=== PATIENT | female | born 1945 | race Caucasian/White ===

== ENCOUNTER 2019-03-12 09:47 | Outpatient (CLI) | payer MEDICARE ==
--- NOTE | 2019-03-12 11:51 | BD ---
DEXA SCAN: INDICATIONS: Postmenopausal osteoporosis screening. FINDINGS: LUMBAR SPINE BMD (g/cm2) T-SCORE Z-SCORE L1 1.629 5.8 8.0 L2 1.479 4.1 6.5 L3 1.387 2.8 5.3 L4 1.218 1.4 4.0 L1-L4 1.405 3.3 5.7 LEFT FEMORAL NECK REGION 0.708 -1.3 0.8 LEFT TOTAL HIP 1.191 2.0 3.9 IMPRESSION: Based on WHO criteria, the patient's bone mineral density is osteopenic. The patient is at moderate risk for fracture. The FRAX-WHO fracture risk assessment tool estimates the 10-year fracture risk fo r a major osteoporotic fracture for this patient at 10% and for a hip fracture at 1.8%. POS: [facility]
== END 2019-03-12 09:48 | disposition home or self-care (01) ==
LOC: BICMAMMO 09:47
PROVIDERS: ATTEND Nurse Practitioner Family
DX: Z13.820 Encounter for screening for osteoporosis (principal); M85.852 Other specified disorders of bone density and structure, left thigh
CPT/HCPCS: 77080

== ENCOUNTER 2019-10-08 12:57 | Outpatient (CLI) | payer MEDICARE ==
--- NOTE | 2019-10-08 14:38 | CT ---
CT LEFT SHOULDER WITHOUT CONTRAST: HISTORY: Left shoulder pain and limited range of motion. COMPARISON: 11/30/2015 FINDINGS: The previous examination was before the joint replacement. Scan artifact related to the replacement d oes definitely degrade detail. There is mild arthrosis of the AC joint with a prominent subacromial s pur present. The humeral component of the prosthesis does not show any definite signs of loosening. There is corti bong thinning involving the cortex of the humeral laterally but no fracture is visualized. The glenoid component of the prosthesis shows some lucency surrounding the screws and there is disrup tion of the posterior cortex of the glenoid, specifically the posterior-inferior portion of the gleno id. The visualized lung field is clear. IMPRESSION: Lucency surrounding the screws involving the glenoid component of the prosthesis with disruption of t he posterior cortex of the glenoid in its posterior-inferior half. POS: [facility]
== END 2019-10-08 12:58 | disposition home or self-care (01) ==
LOC: BICCT 12:57
PROVIDERS: ATTEND Orthopaedic Surgery
DX: M12.812 Other specific arthropathies, not elsewhere classified, left shoulder (principal)

== ENCOUNTER 2020-02-25 10:05 | Outpatient (CLI) | payer MEDICARE ==
--- NOTE | 2020-02-25 11:37 | RAD ---
Exam: Lumbar spine 3 views HISTORY: Lumbar degenerative disc disease. FINDINGS: Lateral neutral, lateral flexion and lateral extension views are presumed with the patient upright Spondylolisthesis: L4-L5: 4 mm of anterolisthesis in the neutral position, 5.6 mm of anterolisthesis upon flexion, 4.5 m m of anterolisthesis upon extension L5-S1: 6.6 mm of anterolisthesis in the neutral position, 9.3 mm of anterolisthesis upon flexion, 7.6 mm of anterolisthesis upon extension. There is evidence of facet arthropathy and multiple levels IMPRESSION: Spondylolisthesis as above.
--- NOTE | 2020-02-25 11:43 | MRI ---
MRI LUMBAR SPINE NONCONTRAST: HISTORY: Lumbar degeneration disc disease. COMPARISON: 12/26/2016. FINDINGS: Redemonstration of type I and type II Modic changes at the T12-L1 level. There is interval developmen t of type I and II Modic changes at L1 and L2. Interval development of prominent anterior osteophytes at L1-L2 and progression of osteophytes at T12-L1. Stable curvature of the lumbar spine w ith rightward scoliosis, apex at the L2 level. Appropriate signal intensity of the visualized paraspinal muscles and solid organs. Conus medullaris terminates at the mid L1 level. T12-L1:Disc desiccation with severe loss of disc space height. Broad-based disc bulge with resultant mild central canal stenosis. Mild bilateral neural foraminal narrowing. L1-L2:Disc desiccation with moderate loss of disc space height. Broad-based disc bulge results in at least mild central canal stenosis. A small amount of fluid in both facet joints. Right neural foramen is patent. Severe left neural foraminal narrowing. L2-L3: Disc desiccation with severe loss of disc space height. Broad-based disc bulge with a right sheriff barticular disc herniation. There appears be an associated annular fissure. Annular fissure and disc material abuts the traversing left L3 nerve root. Mild to moderate right and moderate left neura l foraminal narrowing. L3-L4: Disc desiccation with moderate loss of disc space height. Broad-based disc bulge with a centra l and right subarticular inferior disc extrusion. At the disc space, there is mild to moderate central canal stenosis. There is ligamentum flavum thickening and facet hypertrophy. Fluid in both fa cet joints. Inferior to the disc space, there is narrowing of the right subarticular zone with mass effect and partial obscuration the traversing right L4 nerve root. Mild right and mild to moderate le ft neural foraminal narrowing. L4-L5: Adequate disc hydration. No significant loss of disc space height. Broad-based disc bulge, lig ament flavum thickening and facet result in mild central canal stenosis. There is fluid in both facet joints. Mild to moderate right neural foraminal narrowing. Left neural foramen is patent. L5-S1: Disc desiccation with mild loss of disc space height. Broad-based disc bulge abuts the thecal sac and minimally encroaches upon bilateral subarticular zones. There is some mass effect upon bilateral traversing S1 nerve roots without significant obscuration. There is bilateral facet hypertr ophy with fluid in both facet joints. No significant stenosis of the thecal sac. Mild to moderate bilateral neural foraminal narrowing. Spondylolisthesis: 1.9 mm of retrolisthesis of T12 upon L1. 2.4 mm of retrolisthesis of L1 upon L2. 2.6 mm of retrolisthesis of L2 upon L3. 3.1 mm of retrolisthesis of L3 upon L4. 2.4 mm of anterolisthesis of L4 upon L5. 7.1 mm of anterolisthesis of L5 upon S1. IMPRESSION: Multilevel degenerative changes of the lumbar spine as detailed above. Transcribed Date/Time: 02/25/2020 1:13 PM
== END 2020-02-25 10:06 | disposition home or self-care (01) ==
LOC: BICMRI 10:05
PROVIDERS: ATTEND Nurse Practitioner Family
DX: M51.36 Other intervertebral disc degeneration, lumbar region (principal); M48.061 Spinal stenosis, lumbar region without neurogenic claudication; M43.16 Spondylolisthesis, lumbar region; M47.816 Spondylosis without myelopathy or radiculopathy, lumbar region
CPT/HCPCS: 72100; 72148

== ENCOUNTER 2022-07-11 12:53 | Outpatient (CLI) | payer MEDICARE | END 2022-07-11 12:54 | disposition home or self-care (01) | LOC: MRI 12:53 | PROVIDERS: ATTEND Specialist | DX: M47.22 Other spondylosis with radiculopathy, cervical region (principal); M50.11 Cervical disc disorder with radiculopathy, high cervical region; M48.02 Spinal stenosis, cervical region; M25.78 Osteophyte, vertebrae | CPT/HCPCS: 72141 ==

== ENCOUNTER 2022-12-15 14:48 | Outpatient (CLI) | payer MEDICARE | END 2022-12-15 14:49 | disposition home or self-care (01) | LOC: TBSIIMAG 14:48 | PROVIDERS: ATTEND Nurse Practitioner Family | DX: M48.061 Spinal stenosis, lumbar region without neurogenic claudication (principal); M47.816 Spondylosis without myelopathy or radiculopathy, lumbar region; M43.16 Spondylolisthesis, lumbar region; M43.17 Spondylolisthesis, lumbosacral region; M41.9 Scoliosis, unspecified; M48.07 Spinal stenosis, lumbosacral region | CPT/HCPCS: 72110; 72148 ==

== ENCOUNTER 2024-01-03 14:11 | Outpatient (CLI) | payer MEDICARE | END 2024-01-03 14:12 | disposition home or self-care (01) | LOC: CT 14:11 | PROVIDERS: ATTEND Nurse Practitioner Family | DX: R68.89 Other general symptoms and signs (principal) | CPT/HCPCS: 70450 ==